=== PATIENT | male | born 1970 ===

== ENCOUNTER 2022-08-28 09:06 | Inpatient (IN) | payer OTHER ==
[~2022-08-28] VITALS: Ht 180.3 cm; Wt 92.9 kg
--- NOTE | 2022-08-28 11:35 | NUR ---
PT ARRIVED TO ROOM [id number] AT 1135 BY AMBULANCE FROM [facility]. PT DROWSY, AWAKENS WITH STIMULATION BUT QUICKLY APPEARS TO FALL BACK TO SLEEP. SEE DOCUMENTED VS. PROVIDER NOTIFIED OF PT'S ARRIVAL TO FLOOR. UNABLE TO LOCATE R PEDAL PULSES, L PEDAL PULSES NOT PALPABLE, BUT CAN BE FOUND WITH DOPPLER, PROVIDER NOTIFIED OF THIS FINDING. WOUNDS NOTED TO L DORSAL FOOT AND L POSTERIOR CALF. REDNESS, WARMTH AND 3+ EDEMA NOTED ON L LEG FROM FOOT TO GROIN, R LEG NOTED TO HAVE SOME REDNESS AND SWELLING WELL. SEE WOUND PHOTOS IN CHART. PT ORIENTED TO ROOM, CALL LIGHT, UNIT ROUTINES, DEMONSTRATES ABILITY TO USE CALL LIGHT FOR NEEDS. PROVIDER AT BEDSIDE TO EVALUATE PT AND PLACE ORDERS.
[2022-08-28 12:03] LABS: PCO2 Arterial 38.7 mmHg (35-45); PO2 Arterial 110 mmHg (80-100); pH Blood Arterial 7.48 (7.35-7.45)
[2022-08-28] MEDS ORDERED: ASPI81CH PO (12:45)
[2022-08-28] MEDS ORDERED: HYDROCODONE-AC1 EA10 PO (12:48)
[2022-08-28] MEDS ORDERED: Potassium Chlo20 ME1 PO (12:48)
[2022-08-28] MEDS ORDERED: TORSE20 PO (12:49)
[2022-08-28] MEDS ORDERED: METOPROLOL TART25 MG PO (12:49)
[2022-08-28] MEDS ORDERED: CARV6.25 PO (12:50)
[2022-08-28] MEDS ORDERED: LISINOPRIL2.5 MG PO (12:51)
[2022-08-28 14:51] LABS: Magnesium, Blood 2.1 mg/dL (1.6-2.4); Potassium, Blood 4.3 mmol/L (3.5-5.5)
[2022-08-28 15:26] LABS: U Amphetamine Screen DETECTED; U Barbituate Screen Not Detected; U Benzodiazapine Screen Not Detected; U Buprenorphine Screen Not Detected; U Cannabinoids Screen Not Detected; U Cocaine Screen Not Detected; U Methadone Screen Not Detected; U Methamphetamine Screen DETECTED; U Opiates Screen Not Detected; U Oxycodone Screen Not Detected; U Phencyclidine Screen Not Detected; U Propoxyphene Screen Not Detected
--- NOTE | 2022-08-28 16:11 | NUR ---
REPORTED CRITICAL LACTATE 2.[address] KENDALL. DISCUSSED PT'S CONDITION AND CONCERNS FOR WORSENING SEPSIS AT THIS TIME, HR 107, BP 100/68, RR 20s, KUSSMAUL RESPIRATIONS NOTED. DR KENDALL STATES SHE WILL PLACE NEW ORDERS.
[2022-08-28 17:01] LABS: BASOPHILS ABSOLUTE AUTO 0.04 K/mm3 (0.00-0.23); BASOPHILS PERCENT AUTO 0 % (0-2); EOSINOPHILS PERCENT AUTO 0 % (0-6); Hematocrit 41.8 % (37.0-53.0); Hemoglobin 13.6 g/dL (13.5-17.5); IMMATURE GRAN PERCENT AUTO 1 % (0-1); LYMPHOCYTES ABSOLUTE AUTO 0.77 K/mm3 (0.84-5.20); LYMPHOCYTES PERCENT AUTO 5 % (21-46); MONOCYTES PERCENT AUTO 4 % (4-13); Mean Corpuscular HGB 32.9 pg (26.0-34.0); Mean Corpuscular HGB Conc 32.5 g/dL (31.5-36.5); Mean Corpuscular Volume 101 fL (80-100); Mean Platelet Volume 9.8 fL (9.1-12.4); NEUTROPHILS ABSOLUTE AUTO 15.73 K/mm3 (1.96-9.15); NEUTROPHILS PERCENT AUTO 91 % (41-73); Platelet Count 176 K/mm3 (150-400); RDW Coefficient Variation 15.9 % (11.7-14.2); RDW Standard Deviation 59.3 fL (35.1-46.3); Red Blood Cell Count 4.13 M/mm3 (4.30-5.90); White Blood Cell Count 17.24 K/mm3 (4.00-11.30)
[2022-08-28 17:46] LABS: PCO2 Arterial 40.7 mmHg (35-45); PO2 Arterial 60.7 mmHg (80-100); pH Blood Arterial 7.47 (7.35-7.45)
--- NOTE | 2022-08-28 18:15 | NUR ---
NO NEW CHANGES TO PT CONDITION AT THIS TIME. SEE DOCUMENTED VS AND ASSESSMENT. PT IS MORE AWAKE THIS EVENING, REQUESTING PAIN MEDICATION, MORE ALERT, TALKING ON THE PHONE AND EATING DINNER. SEE PREVIOUS NOTES. PT IS ABLE TO USE CALL LIGHT FOR NEEDS, CALL LIGHT IN REACH, WILL CONTINUE TO MONITOR AND GIVE REPORT TO NOC SHIFT RN.
[2022-08-28 18:27] LABS: Albumin, Blood 2.6 g/dL (3.4-5.0); Albumin/Globulin Ratio 0.6 (0.8-1.8); Calcium, Blood 8.6 mg/dL (8.5-10.1); Creatinine, Blood 1.24 mg/dL (0.60-1.20); Globulin, Blood 4.2 g/dL (2.2-4.0); Potassium, Blood 4.3 mmol/L (3.5-5.5); Total Protein, Blood 6.8 g/dL (6.4-8.2)
--- NOTE | 2022-08-28 19:00 | NUR ---
ASSUMED CARE THIS RN AND DAYSHIFT RN IN ROOM AT SHIFT CHANGE TO ROSE REDNESS/SWELLING TO BLE. PT ALERT AND CONVERSING WITH STAFF. PT STATES HIS PAIN IS 8/10. CALL TO MD REGARDING PAIN MEDICATION. ORDERS RECEIVED. SEE EMAR. PT REPORTS PAIN IMPROVED WITH MEDICATION. DRSG PLACED ON WOUNDS TO THE TOP OF THE L FOOT AND BOTTOM OF L CALF.
[2022-08-29 04:46] LABS: BASOPHILS ABSOLUTE AUTO 0.03 K/mm3 (0.00-0.23); BASOPHILS PERCENT AUTO 0 % (0-2); EOSINOPHILS ABSOLUTE AUTO 0.01 K/mm3 (0.00-0.68); EOSINOPHILS PERCENT AUTO 0 % (0-6); Hematocrit 39.2 % (37.0-53.0); Hemoglobin 12.3 g/dL (13.5-17.5); IMMATURE GRAN ABSOLUTE AUTO 0.05 K/mm3 (0.00-0.10); IMMATURE GRAN PERCENT AUTO 0 % (0-1); LYMPHOCYTES ABSOLUTE AUTO 0.86 K/mm3 (0.84-5.20); LYMPHOCYTES PERCENT AUTO 7 % (21-46); MONOCYTES ABSOLUTE AUTO 0.66 K/mm3 (0.16-1.47); MONOCYTES PERCENT AUTO 5 % (4-13); Mean Corpuscular HGB 31.9 pg (26.0-34.0); Mean Corpuscular HGB Conc 31.4 g/dL (31.5-36.5); Mean Corpuscular Volume 102 fL (80-100); NEUTROPHILS ABSOLUTE AUTO 11.25 K/mm3 (1.96-9.15); NEUTROPHILS PERCENT AUTO 88 % (41-73); Platelet Count 159 K/mm3 (150-400); RDW Coefficient Variation 15.9 % (11.7-14.2); Red Blood Cell Count 3.86 M/mm3 (4.30-5.90); White Blood Cell Count 12.86 K/mm3 (4.00-11.30)
[2022-08-29 05:13] LABS: Albumin, Blood 2.5 g/dL (3.4-5.0); Albumin/Globulin Ratio 0.6 (0.8-1.8); Bilirubin, Total 1.7 mg/dL (0.1-1.0); Bun/Creatinine Ratio 31.8 (12.0-20.0); Calcium, Blood 8.3 mg/dL (8.5-10.1); Creatinine, Blood 1.32 mg/dL (0.60-1.20); Potassium, Blood 3.8 mmol/L (3.5-5.5); Total Protein, Blood 6.5 g/dL (6.4-8.2)
--- NOTE | 2022-08-29 06:36 | NUR ---
SHIFT SUMMARY NO ACUTE EVENTS OVERNIGHT. MEDICATED FOR PAIN ONCE. SEE EMAR. PT SLEPT MOST OF THE NIGHT. VOIDED IN URINAL. DANGLED AT BEDSIDE W/ ONE ASSIST. VSS. SEE SHIFT ASSESSMENT FOR FULL ASSESSMENT.
--- NOTE | 2022-08-29 18:03 | NUR ---
SHIFT SUMMARY; ASSUMED CARE AT 0700. SLEEPING BUT ARROUSABLE. SLEEPS MOST OF MORNING, A/A/OX4 WHEN AWAKE. REPOSITIONS SELF IN BED NEEDED, USES URINAL AT BEDSIDE. VS, RA WITH SATS 97%. BILATERAL LEG CELLULITIS OUTLINED BY PREVIOUS NURSE. REDNESS HAS DECREASED FROM LINES. BLE EDEMA, MEPILEX TO LEFT LOWER LEG WOUND. FEET SCALY, RED WITH OLD SORES. PEDAL PULSES PALPABLE WITH DOPPLER. PLESANT AND COOPERATIVE WITH CARE. WILL CONTINUE TO MONITOR AND TREAT UNTIL CHANGE OF SHIFT.
--- NOTE | 2022-08-29 19:00 | NUR ---
ASSUMED CARE PT A/O X 4. FOLLOWING DIRECTIONS. C/O PAIN IN LEFT LEG. MEDICATED PER EMAR. SEE SHIFT ASSESSMENT FOR MORE DETAILS. VOIDING IN URINAL. VSS. CALL LIGHT IN REACH.
--- NOTE | 2022-08-29 22:29 | NUR ---
VTACH PT HAD 5 BEAT RUN OF VTACH. PT SLEEPING WHEN THIS RN ENTERED ROOM. DENIED CHEST PAIN, AND BLOOD PRESSURE STABLE.
--- NOTE | 2022-08-30 01:23 | NUR ---
VTACH PT HAD 16 BEAT RUN OF VTACH. PT WATCHING TV WHEN THIS RN ENTERED ROOM. DENIES CHEST PAIN. VSS. PT C/O PAIN IN L LEG. MEDICATED PER EMAR.
[2022-08-30 03:53] LABS: BASOPHILS ABSOLUTE AUTO 0.04 K/mm3 (0.00-0.23); BASOPHILS PERCENT AUTO 0 % (0-2); EOSINOPHILS ABSOLUTE AUTO 0.09 K/mm3 (0.00-0.68); EOSINOPHILS PERCENT AUTO 1 % (0-6); Hemoglobin 12.9 g/dL (13.5-17.5); IMMATURE GRAN ABSOLUTE AUTO 0.05 K/mm3 (0.00-0.10); IMMATURE GRAN PERCENT AUTO 0 % (0-1); LYMPHOCYTES ABSOLUTE AUTO 1.31 K/mm3 (0.84-5.20); LYMPHOCYTES PERCENT AUTO 10 % (21-46); MONOCYTES ABSOLUTE AUTO 1.13 K/mm3 (0.16-1.47); MONOCYTES PERCENT AUTO 9 % (4-13); Mean Corpuscular HGB 33.2 pg (26.0-34.0); Mean Corpuscular HGB Conc 33.1 g/dL (31.5-36.5); Mean Corpuscular Volume 100 fL (80-100); Mean Platelet Volume 9.9 fL (9.1-12.4); NEUTROPHILS ABSOLUTE AUTO 10.18 K/mm3 (1.96-9.15); NEUTROPHILS PERCENT AUTO 80 % (41-73); Platelet Count 166 K/mm3 (150-400); RDW Coefficient Variation 15.8 % (11.7-14.2); RDW Standard Deviation 58.5 fL (35.1-46.3); Red Blood Cell Count 3.89 M/mm3 (4.30-5.90)
[2022-08-30 04:22] LABS: Albumin, Blood 2.4 g/dL (3.4-5.0); Albumin/Globulin Ratio 0.6 (0.8-1.8); Calcium, Blood 8.2 mg/dL (8.5-10.1); Creatinine, Blood 1.2 mg/dL (0.60-1.20); Globulin, Blood 4.3 g/dL (2.2-4.0); Potassium, Blood 3.9 mmol/L (3.5-5.5); Total Protein, Blood 6.7 g/dL (6.4-8.2)
--- NOTE | 2022-08-30 04:37 | NUR ---
CALL TO MD DR GARCIA NOTIFIED OF CALCIUM OF 8.2. ORDERS RECEIVED.
--- NOTE | 2022-08-30 05:09 | NUR ---
SHIFT SUMMARY PT HAD TWO RUNS OF VTACH T/O NIGHT. SEE PREVIOUS NOTES. MEDICATED FOR PAIN TWICE. SEE EMAR. CURRENTLY ON 2L VIA NC. SPO2 DROPPED TO 86% WHILE ASLEEP. UNABLE TO GET CONTINUOUS SPO2 MONITORING D/T PT MOVEMENT. SPOT CHECKS DONE AND SPO2 GREATER THAN 92%. SEE SHIFT ASSESSMENT FOR FULL ASSESSMENT. VOIDS IN URINAL. CALL LIGHT IN REACH.
[2022-08-30 07:43] LABS: Magnesium, Blood 2.1 mg/dL (1.6-2.4); Phosphorus, Blood 2.7 mg/dL (2.5-4.9)
--- NOTE | 2022-08-30 19:38 | NUR ---
SHIFT SUMMARY: PT A&O T/OUT THE DAY, SLEEPS OFTEN BUT WAKES EASILY. PT MAINTAINS O2 SATS>93% ON RA OR 2L/MIN. SR ON MONITOR W/ONE RUN VTACH, PT DENIES CP, VSS. PT REPOSITIONS SELF IN BED, USES URINAL INDEPENDENTLY, DIURESIS IN PROGRESS. WOUND CARE CONSULTATION COMPLETED BY MARYLU SALEH. NEW PHOTOS OBTAINED AND NEW ORDERS PLACED. WOUNDS HAVE BEEN CLEANED AND DRESSED PER ORDERS. REPORT GIVEN TO MARYLU MON.
--- NOTE | 2022-08-30 21:16 | NUR ---
CARE ASSUMPTION: PATIENT WATCHING TV, A&O X4, REPORTS 8/10 PAIN IN BLE. DRESSINGS C/D/I. 6 BEAT RUN OF VTACH - ASYMPTOMATIC. 2L NC FOR COMFORT. BED LOW WITH CALL LIGHT IN PLACE.
[2022-08-31 04:22] LABS: Albumin, Blood 2.3 g/dL (3.4-5.0); Anion Gap 4 mmol/L (6-16); Blood Urea Nitrogen 34 mg/dL (8-24); Bun/Creatinine Ratio 42.4 (12.0-20.0); CO2, Blood 33 mmol/L (21-32); Calcium, Blood 8.2 mg/dL (8.5-10.1); Chloride, Blood 100 mmol/L (98-108); Glomerular Filtration Rate 107 (60-); Glucose, Blood 110 mg/dL (70-99); Phosphorus, Blood 2.3 mg/dL (2.5-4.9); Sodium, Blood 137 mmol/L (136-145)
--- NOTE | 2022-08-31 04:44 | NUR ---
SHIFT SUMMARY: PATIENT VS WNL ON RA, A&O X4, SBA TO TOILET. DRESSINGS C/D/I. NO NEW SWELLING NOTED. MEDICATED PER EMAR. WITHDRAWN BUT COOPERATIVE WITH CARE. USES CALL LIGHT APPROPRIATELY. SLEPT WELL T/O NIGHT. NO ADDITIONAL RUNS OF VTACH AT THIS TIME. LABS CAME BACK WITHIN ACCEPTABLE RANGE PER ORDERS. BED LOW WITH CALL LIGHT IN REACH. WILL CONTINUE TO MONITOR AND REPORT TO ONCOMING RN.
[2022-08-31 12:38] LABS: Hematocrit 42.8 % (37.0-53.0); Hemoglobin 14.1 g/dL (13.5-17.5); Mean Corpuscular HGB 33.3 pg (26.0-34.0); Mean Corpuscular HGB Conc 32.9 g/dL (31.5-36.5); Mean Corpuscular Volume 101 fL (80-100); Mean Platelet Volume 9.4 fL (9.1-12.4); Platelet Count 194 K/mm3 (150-400); RDW Coefficient Variation 15.8 % (11.7-14.2); RDW Standard Deviation 58.4 fL (35.1-46.3); Red Blood Cell Count 4.24 M/mm3 (4.30-5.90); White Blood Cell Count 12.04 K/mm3 (4.00-11.30)
--- NOTE | 2022-08-31 15:07 | NUR ---
SHIFT SUMMARY PT RESTING QUIETLY, WATCHING TV, MOST OF THE DAY. IN AND OUT AT BS. PT UP TO SHOWER BEFORE LUNCH, ABLE TO WASH HIMSELF WITH ASSISTING SM AMT. PT CO-OP WITH CARE, BUT WITH FLAT AFFECT. VERY SHORT AND ANGRY WITH MOST OF THE TIME. HR UP A COUPLE OF TIMES WHEN AGITATED, BUT ONLY BRIEFLY. VOIDING WELL. BLE'S VERY RED WITH SWELLING FROM THIGHS TO FEET; LLE MORE SWOLLEN THAN RIGHT. DRSG TO TOP OF L FOOT ULCER REMOVED AFTER SHOWER. PT WANTING TO PLACE LARGE BANDAID WHEN BACK TO BED. DR KENDALL IN TO SEE PT THIS AM. 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 DR KENDALL WANTING PT TO STAY UNTIL FRIDAY. PT LATER AGREED TO STAY ONE MORE DAY AND THEN TALK ABOUT IT TOMORROW. DR KENDALL AWARE. DENIED FURTHER NEEDS AT THIS TIME. CALL LT IN REACH.
[2022-09-01 03:56] LABS: Hematocrit 38.1 % (37.0-53.0); Hemoglobin 12.4 g/dL (13.5-17.5); Mean Corpuscular HGB 32.5 pg (26.0-34.0); Mean Corpuscular HGB Conc 32.5 g/dL (31.5-36.5); Mean Corpuscular Volume 100 fL (80-100); Mean Platelet Volume 9.5 fL (9.1-12.4); Platelet Count 204 K/mm3 (150-400); RDW Coefficient Variation 15.6 % (11.7-14.2); RDW Standard Deviation 57.7 fL (35.1-46.3); Red Blood Cell Count 3.81 M/mm3 (4.30-5.90)
[2022-09-01 04:15] LABS: Albumin, Blood 2.2 g/dL (3.4-5.0); Anion Gap 6 mmol/L (6-16); Blood Urea Nitrogen 20 mg/dL (8-24); Bun/Creatinine Ratio 30.3 (12.0-20.0); CO2, Blood 33 mmol/L (21-32); Calcium, Blood 7.8 mg/dL (8.5-10.1); Chloride, Blood 99 mmol/L (98-108); Creatinine, Blood 0.66 mg/dL (0.60-1.20); Glomerular Filtration Rate 114 (60-); Glucose, Blood 116 mg/dL (70-99); Phosphorus, Blood 2.1 mg/dL (2.5-4.9); Potassium, Blood 3.9 mmol/L (3.5-5.5); Sodium, Blood 138 mmol/L (136-145)
--- NOTE | 2022-09-01 04:53 | NUR ---
SHIFT SUMMARY: PT SLEPT ON AND OFF A MAJORITY OF THE SHIFT. REMAINS ALERT AND ORIENTED X4, AFEBRILE, BP AND HR STABLE, NO COMPLAINTS OF CP, PRESSURE, OR SOB THROGHOUT THE NIGHT. SATING >95% ON RA. PT IND W/URINAL. NO BM THIS SHIFT. REPOS IND IN BED. BLE REMAIN RED AND WARM TO TOUCH. BED IN LOW, CALL LIGHT IN REACH, WILL REPORT TO ONCOMING RN.
[2022-09-01] MEDS ORDERED: VISBIOME 112.51 EACH PO (11:52)
[2022-09-01] MEDS ORDERED: K-Phos Origina500 MG PO (11:52)
[2022-09-01] MEDS ORDERED: CEPH500 PO (11:53)
--- NOTE | 2022-09-01 18:56 | NUR ---
DISCHARGE SUMMARY PT ALERT, ORIENTED x3; CALM AND COOPERAITVER WITH CARE. PT RESTING IN BED, UP IND IN ROOM. PT REPORTS PAIN TO BLE, MEDICATED PER EMAR. PT DENIES CHEST PAIN/PRESSURE, SOB, NAUSEA, DIZZINESS AND NUMB/TINGLING. SPO2 >90% ON RA, BREATHING EVEN AND UNLABORED. SINUS, BP STALBE. DISCUSSED NEED FOR LIFECEST WITH , NO NEW ORDERS AT THIS TIME. AFEBRILE. OTHER VSS. NO OTHER CHANGES NOTED. PT EDUCATED ON DISCHARGE INSTTRUCTIONS, FOLLOW UP APPOINTMENT AND PRESCIRPTION. EDUCATED PT ON METH USE, PT STATES "I DONT KNOW WHY THAT KEEPS COMING UP POSITIVE, I QUIT 10 YEARS AGO". PT EDUCATED ON HEART FUNCTION AND ARRYTHMIAS THAT CAN OCCUR. PRESCRIPTIONS FAXED TO [facility], PER PT REQUEST. PT LEFT ROOM AT APPROX 1328.
== END 2022-09-01 13:45 | disposition home or self-care (01) | DRG 871 ==
LOC: PCU 09:06
PROVIDERS: Internal Medicine; Nurse Practitioner Acute Care; Student in an Organized Health Care Education/Training Program; ADMIT Hospitalist
DX: A41.9 Sepsis, unspecified organism (principal); I50.23 Acute on chronic systolic (congestive) heart failure; L03.116 Cellulitis of left lower limb; I42.0 Dilated cardiomyopathy; L03.115 Cellulitis of right lower limb; I47.20 Ventricular tachycardia, unspecified; R65.20 Severe sepsis without septic shock; L97.529 Non-pressure chronic ulcer of other part of left foot with unspecified severity; I25.10 Atherosclerotic heart disease of native coronary artery without angina pectoris; I73.9 Peripheral vascular disease, unspecified; F17.210 Nicotine dependence, cigarettes, uncomplicated; R07.89 Other chest pain; I25.5 Ischemic cardiomyopathy; I11.0 Hypertensive heart disease with heart failure; I27.20 Pulmonary hypertension, unspecified; F15.10 Other stimulant abuse, uncomplicated; E83.39 Other disorders of phosphorus metabolism; Z59.00 Homelessness unspecified; Z95.5 Presence of coronary angioplasty implant and graft; Z79.82 Long term (current) use of aspirin; Z79.811 Long term (current) use of aromatase inhibitors; Z79.899 Other long term (current) drug therapy
CPT/HCPCS: 36415; 36600; 71045; 80053; 80069; 82330; 82803; 83605; 83735; 83880; 84100; 84132; 85025; 85027; 87040; 93306; 93926; 93971; 94760; A9270; J0610; J0690; J1644; J1885